=== PATIENT | female | born 1995 | race Caucasian/White ===

== ENCOUNTER 2019-08-15 17:40 | Emergency (ER) | payer SELFPAY ==
--- NOTE | 2019-08-15 19:34 | ED ---
Skin Complaint - HPI Summary HPI Summary: Patient complains of abscess to left axilla, involving both trunk and left upper extremity 2 days. Patient states positive purulent drainage. Patient has history of IV meth use, but denies accessing axilla for IV drug use. Denies prior history of abscess. Denies fever, cough, sore throat, CP, SOB, N/V /V abdominal pain, change in urine, change in BM. Denies medical history. - History of Current Complaint Chief Complaint: EDRashSkinAbscess Time Seen by Provider: 08/15/19 19:29 Stated Complaint: ABCESS UNDER ARM Hx Obtained From: Patient Onset/Duration: Started Days Ago Skin Exposure Onset/Duration: Days Ago Timing: Constant Onset Severity: Mild Current Severity: Severe Pain Intensity: 9 Pain Scale Used: 0-10 Numeric Skin Location: Discrete Character: Pain, Redness, Painful Aggravating Symptom(s): Touch Alleviating Symptom(s): Nothing Associated Signs & Symptoms: Drainage - Allergy/Home Medications Allergies/Adverse Reactions: Allergies Allergy/AdvReac Type Severity Reaction Status Date / Time No Known Allergies Allergy Verified 08/15/19 17:49 PMH/Surg Hx/FS Hx/Imm Hx Endocrine/Hematology History: Denies: Hx Anticoagulant Therapy Cardiovascular History: Denies: Hx Pacemaker/ICD History: Denies: Hx Dialysis Sensory History: Denies: Hx Eye Prosthesis Opthamlomology History: Denies: Hx Legally Blind EENT History: Denies: Hx Deafness Neurological History: Denies: Hx Dementia Infectious Disease History: No Infectious Disease History: Denies: Traveled Outside the [place] in Last 30 Days - Family History Known Family History: Positive: Non-Contributory - Social History Alcohol Use: Occasionally Hx Substance Use: Yes Smoking Status (MU): Former Smoker Review of Systems Constitutional: Negative Eyes: Negative ENT: Negative Cardiovascular: Negative Respiratory: Negative Gastrointestinal: Negative Genitourinary: Negative Musculoskeletal: Negative Skin: Other Neurological: Negative Psychological: Normal All Other Systems Reviewed And Are Negative: Yes Physical Exam - Summary Physical Exam Summary: Large 8 cm x 8 cm area of fluctuance on upper medial bicep area. 6 x 6 cm area of fluctuance on trunk just proximal to left axilla. There appears to be some connecting induration between the 2 areas of fluctuance no purulent discharge noted. Localized erythema surrounding areas of fluctuance. Normal range of motion of left shoulder and left elbow without pain. Triage Information Reviewed: Yes Vital Signs On Initial Exam: Initial Vitals Temp Pulse Resp BP Pulse Ox 99.0 F 91 14 139/73 100 08/15/19 17:41 08/15/19 17:41 08/15/19 17:41 08/15/19 17:41 08/15/19 17:41 Vital Signs Reviewed: Yes Appearance: Positive: Well-Appearing Skin: Positive: Warm Head/Face: Positive: Normal Head/Face Inspection Eyes: Positive: Normal Neck: Positive: Supple Respiratory/Lung Sounds: Positive: Clear to Auscultation Cardiovascular: Positive: Normal Abdomen Description: Positive: Nontender Musculoskeletal: Positive: Normal Neurological: Positive: Normal Psychiatric: Positive: Normal AVPU Assessment: Alert - [place] Coma Scale Best Eye Response: 4 - Spontaneous Best Motor Response: 6 - Obeys Commands Best Verbal Response: 5 - Oriented Coma Scale Total: 15 Procedures - Sedation Patient Received Moderate/Deep Sedation with Procedure: No Diagnostics - Vital Signs Vital Signs Temp Pulse Resp BP Pulse Ox 08/15/19 17:41 99.0 F 91 14 139/73 100 - Laboratory Result Diagrams: 08/15/19 19:52 08/15/19 19:52 Lab Statement: Any lab studies that have been ordered have been reviewed, and results considered in the medical decision making process. Course/Dx - Course Course Of Treatment: Patient complains of abscess to left axilla, involving both trunk and left upper extremity 2 days. Patient states positive purulent drainage. Patient has history of IV meth use, but denies accessing axilla for IV drug use. Denies prior history of abscess. Denies fever, cough, sore throat , CP, SOB, N/V/V abdominal pain, change in urine, change in BM. Denies medical history. Vital signs within normal limits. Labs unremarkable. I&D performed on 2 abscesses.. Significant amount of purulent drainage. Both abscesses packed with iodoform. Patient started on Keflex and Bactrim. Wound culture positive for staph, negative for MRSA. - Diagnoses Provider Diagnoses: Abscess Discharge ED - Sign-Out/Discharge Documenting (check all that apply): Patient Departure - Discharge Plan Condition: Stable Disposition: HOME Prescriptions: Cephalexin CAP* [Keflex CAP*] 500 mg PO QID 10 Days #40 cap Sulfamethox/Trimethoprim DS* [Bactrim DS 800/160 TAB*] 1 tab PO BID 10 Days #20 tab Patient Education Materials: Abscess (ED), Abscess Follow-up (ED) Referrals: No Primary Care Phys,NOPCP [Primary Care Provider] - Additional Instructions: Take antibiotics as directed. Return to the ED in 2 days for abscess follow- up. Return earlier for any concerning symptoms. - Billing Disposition and Condition Condition: STABLE Disposition: Home
[2019-08-15] MEDS ORDERED: Lidocaine 2% 10 ML* VIAL INJ ONE (19:59)
[2019-08-15 20:04] LABS: ABS Eosinophils 0.3 10^3/ul (0-0.6); ABS Monocytes 0.8 10^3/ul (0-0.8); ABS Neutrophils 5.9 10^3/ul (1.5-7.7); Eosinophil % 3.1 %; Hematocrit 35 % (35-47); Hemoglobin 11.8 g/dL (12.0-16.0); Lymphocyte % 21.9 %; Mean Corpuscular HGB Conc 34 g/dL (31-36); Mean Corpuscular Hemoglobin 32 pg (27-31); Mean Corpuscular Volume 93 fL (80-97); Mean Platelet Volume 6.8 fL (7.4-10.4); Platelet Count 293 10^3/uL (150-450); Red Blood Count 3.74 10^6 /uL (3.70-4.87); Red Cell Distribution Width 14 % (10-15); White Blood Count 8.9 10^3/uL (3.5-10.8)
[2019-08-15 20:15] LABS: Albumin 3.1 g/dL (3.2-5.2); Albumin/Globulin Ratio 1.1 (1-3); BUN/Creatinine Ratio 14.6 (8-20); C Reactive Protein 73.55 mg/L (<8.01); Calcium 8.4 mg/dL (8.6-10.3); EGFR African American 232.6 (>60); EGFR Non-African American 192.2 (>60); Globulin 2.7 g/dL (2-4); Potassium 3.3 mmol/L (3.5-5.0); Total Bilirubin 0.5 mg/dL (0.2-1.0); Total Protein 5.8 g/dL (6.4-8.9)
[2019-08-15] MEDS ORDERED: Ketorolac *IM* INJ* 60 MG/2 ML VIAL ONE (21:21)
[2019-08-15] MEDS ORDERED: Cephalexin CAP* 500 MG PO ONE (21:57)
[2019-08-15] MEDS ORDERED: Sulfamethox/Trimethoprim DS 800/160* TAB PO ONE (21:57)
[2019-08-15] MEDS ORDERED: Potassium Chlor TAB* 20 MEQ TAB.ER PO ONE (21:58)
[2019-08-15] MEDS ORDERED: Ketorolac *IM* INJ* 60 MG/2 ML VIAL IM ONE (22:16)
[2019-08-15 22:55] VITALS: BP 141/69
== END 2019-08-15 22:30 | disposition home or self-care (01) ==
LOC: ED 17:40
DX: L02.412 Cutaneous abscess of left axilla (principal); L02.219 Cutaneous abscess of trunk, unspecified; B95.61 Methicillin susceptible Staphylococcus aureus infection as the cause of diseases classified elsewhere; Z87.891 Personal history of nicotine dependence
CPT/HCPCS: 10060; 36415; 80053; 83605; 85025; 86140; 87070; 87077; 87186; 87205; 87640; 87641; 96372; 99283; A9270-GY; J1885

== ENCOUNTER 2019-08-18 18:43 | Inpatient (IN) | payer SELFPAY ==
[2019-08-18] MEDS ORDERED: Piperacillin/Tazobac ADVAN(*) 3.375 GM in NS 0.9% 100 ML* 100 ML IVPB ONE (19:33)
[2019-08-18] MEDS ORDERED: NS 0.9% 1000 ML** 1,000 ML IV.FLUID IV ONE (19:33)
[2019-08-18 19:45] LABS: ABS Lymphocytes 2.8 10^3/ul (1.0-4.8); ABS Monocytes 0.7 10^3/ul (0-0.8); ABS Neutrophils 6.7 10^3/ul (1.5-7.7); Eosinophil % 0.3 %; Hematocrit 37 % (35-47); Hemoglobin 12.9 g/dL (12.0-16.0); Lymphocyte % 27.1 %; Mean Corpuscular HGB Conc 35 g/dL (31-36); Mean Corpuscular Hemoglobin 32 pg (27-31); Mean Corpuscular Volume 92 fL (80-97); Mean Platelet Volume 6.2 fL (7.4-10.4); Nucleated Red Blood Cells % 0.1; Platelet Count 400 10^3/uL (150-450); Red Blood Count 4.07 10^6 /uL (3.70-4.87); Red Cell Distribution Width 14 % (10-15); White Blood Count 10.4 10^3/uL (3.5-10.8)
[2019-08-18] MEDS ORDERED: Vancomycin(*) 1,000 MG VIAL IVPB SCH (20:00)
[2019-08-18] MEDS ORDERED: Vancomycin(*) 1,000 MG in NS 0.9% 250 ML* 250 ML IVPB ONE (20:00)
[2019-08-18 20:10] LABS: INR 1.15 (0.82-1.09)
[2019-08-18 20:11] LABS: ALT 34 U/L (7-52); AST 39 U/L (13-39); Albumin 3.8 g/dL (3.2-5.2); Albumin/Globulin Ratio 1.1 (1-3); Alkaline Phosphatase 49 U/L (34-104); Anion Gap 9 mmol/L (2-11); BUN/Creatinine Ratio 13.8 (8-20); Blood Urea Nitrogen 8 mg/dL (6-24); C Reactive Protein 11.16 mg/L (<8.01); CO2 Carbon Dioxide 27 mmol/L (22-32); Calcium 9.2 mg/dL (8.6-10.3); Chloride 104 mmol/L (101-111); EGFR African American 155.9 (>60); EGFR Non-African American 128.8 (>60); Globulin 3.4 g/dL (2-4); Glucose 88 mg/dL (70-100); Potassium 3.7 mmol/L (3.5-5.0); Sodium 140 mmol/L (135-145); Total Protein 7.2 g/dL (6.4-8.9)
--- NOTE | 2019-08-18 20:15 | ED ---
Skin Complaint - HPI Summary HPI Summary: This patient is a 23 year old F presenting to [facility] with a chief complaint of worsening abscess near anterior axilla today. Pt was here on 08/16/19 to have abscess drained, and was supposed to start antibiotics but she never picked them up. Pt was supposed come into the ED yesterday but could not make it. Per triage, the patient rates the pain 2/10 in severity. Patient denies fever, nausea, vomiting. Pt has a PMHx of anxiety. Pt does not take any other antibiotics. Pt has previously had an ectopic . Pt smokes, and does not drink. Pt is on suboxone. - History of Current Complaint Chief Complaint: EDRashSkinAbscess Time Seen by Provider: 08/18/19 19:33 Stated Complaint: ABSCESS ON LT ARM PER PT Hx Obtained From: Patient Onset/Duration: Started Days Ago, Worse Since - 08/18/19 Skin Exposure Onset/Duration: Days Ago Timing: Constant Onset Severity: Mild Current Severity: Mild Pain Intensity: 2 Pain Scale Used: 0-10 Numeric Skin Location: Arm Character: Swelling, Pain, Redness Aggravating Symptom(s): Nothing Alleviating Symptom(s): Nothing Associated Signs & Symptoms: Negative - Allergy/Home Medications Allergies/Adverse Reactions: Allergies Allergy/AdvReac Type Severity Reaction Status Date / Time No Known Allergies Allergy Verified 08/15/19 17:49 Home Medications: Home Medications Buprenorphine HCl/Naloxone HCl [Zubsolv 11.4-2.9 mg Tablet Sl] 1 each SL DAILY 08/18/19 [History Confirmed 08/18/19] PMH/Surg Hx/FS Hx/Imm Hx Endocrine/Hematology History: Denies: Hx Anticoagulant Therapy Cardiovascular History: Denies: Hx Pacemaker/ICD History: Denies: Hx Dialysis Sensory History: Denies: Hx Eye Prosthesis, Hx Legally Blind, Hx Deafness Opthamlomology History: Denies: Hx Eye Prosthesis, Hx Legally Blind Neurological History: Denies: Hx Dementia - Surgical History Surgery Procedure, Year, and Place: ectopic Infectious Disease History: No Infectious Disease History: Denies: Traveled Outside the [place] in Last 30 Days - Family History Known Family History: Negative: Diabetes - Social History Alcohol Use: None Hx Substance Use: Yes Substance Use Type: Reports: Other Substance Use Comment - Amount & Last Used: methamphetamine Smoking Status (MU): Current Every Day Smoker - Additional Comments History Additional Comments: Home Medications Medication Instructions Recorded Confirmed Type NK [No Home Medications Reported] 08/18/19 08/18/19 History Review of Systems Negative: Fever Negative: Vomiting, Nausea Positive: Other - abscess All Other Systems Reviewed And Are Negative: Yes Physical Exam - Summary Physical Exam Summary: General: Well-developed, Well-nourished Female. In mild discomfort at rest. HEENT: Normocephalic, Atraumatic. Eyes: Conjuctiva normal, PERRL. Ears: TMs within normal limits. Nares: (-) discharge, (-) erythema. Oropharynx: Clear, mucous membranes moist, (-) exudates. Neck: Soft, FROM, (-) lymphadenopathy, (-) thyromegaly, (-) JVD. Cardiovascular: Normal sinus rhythm, (-) murmur. Lungs: Clear to auscultation bilaterally (-) wheezes, (-) rales, (-) rhonchi. Abdomen: Soft, non-tender, non-distended, (-) organomegaly, normal bowel sounds. Back: (-) CVA tenderness Extremities: No edema. Skin: Warm, dry, Swelling anterior axilla area, erythematous packing removed, significant erythema from axilla to upper arm; 2.5 cm cavernous wound with packing partially removed; puss at the sight, significant tenderness and warmth Neuro: Alert and oriented x3, no focal deficits. Psychiatric: Moderately anxious appearing Triage Information Reviewed: Yes Vital Signs On Initial Exam: Initial Vitals Temp Pulse Resp BP Pulse Ox 97.7 F 109 16 127/79 98 08/18/19 18:51 08/18/19 18:51 08/18/19 18:51 08/18/19 18:51 08/18/19 18:51 Vital Signs Reviewed: Yes Procedures - Sedation Patient Received Moderate/Deep Sedation with Procedure: No Diagnostics - Vital Signs Vital Signs Temp Pulse Resp BP Pulse Ox 08/18/19 18:51 97.7 F 109 16 127/79 98 - Laboratory Lab Results: Lab Results 08/18/19 Range/Units 19:38 WBC 10.4 (3.5-10.8) 10^3/uL RBC 4.07 (3.70-4.87) 10^6 /uL Hgb 12.9 (12.0-16.0) g/dL Hct 37 (35-47) % MCV 92 (80-97) fL MCH 32 H (27-31) pg MCHC 35 (31-36) g/dL RDW 14 (10-15) % Plt Count 400 (150-450) 10^3/uL MPV 6.2 L (7.4-10.4) fL Neut % (Auto) 64.9 % Lymph % (Auto) 27.1 % Grant % (Auto) 7.2 % Eos % (Auto) 0.3 % Baso % (Auto) 0.5 % Absolute Neuts (auto) 6.7 (1.5-7.7) 10^3/ul Absolute Lymphs (auto) 2.8 (1.0-4.8) 10^3/ul Absolute Monos (auto) 0.7 (0-0.8) 10^3/ul Absolute Eos (auto) 0.0 (0-0.6) 10^3/ul Absolute Basos (auto) 0.0 (0-0.2) 10^3/ul Absolute Nucleated RBC 0.0 10^3/ul Nucleated RBC % 0.1 Result Diagrams: 08/18/19 19:38 08/18/19 19:38 Lab Statement: Any lab studies that have been ordered have been reviewed, and results considered in the medical decision making process. Course/Dx - Course Course Of Treatment: This patient is a 23 year old F presenting to [facility] with a chief complaint of worsening abscess near anterior axilla today. Pt was here on 08/16/19 to have abscess drained, and was supposed to start antibiotics but she never picked them up. Pt was supposed come into the ED yesterday but could not make it. Per triage, the patient rates the pain 2/10 in severity. Patient denies fever, nausea, vomiting. Pt has a PMHx of anxiety. Pt does not take any other antibiotics. Pt has previously had an ectopic . Pt smokes, and does not drink. Pt is on suboxone. Pt has mild discomfort at rest. Swelling anterior axilla area, erythematous packing removed, significant erythema from axilla to upper arm; 2.5 cm cavernous wound with packing partially removed; puss at the sight, significant tenderness and warmth, and is moderately anxious appearing. Blood work obtained. MCH is 32, MPV is is 6.2, Lactic Acid is 2.4, C -Reactive Protein is 11.16, and INR is 1.15. In the ED course the patient was given fluids, Vanocomycin, and Piperacillin. We discussed patient care with Dr. Tran and they accepted pt for admission. Pt will be admitted. The patient is agreeable with this plan. - Diagnoses Provider Diagnoses: Abscess - Physician Notifications Discussed Care Of Patient With: Mk Tran Time Discussed With Above Provider: 21:03 Instructed by Provider To: Other - Discussed case with Dr. Tran, who accepts pt for admission Discharge ED - Sign-Out/Discharge Documenting (check all that apply): Patient Departure - Admit - Discharge Plan Condition: Stable Disposition: ADMITTED TO [facility] - Billing Disposition and Condition Condition: STABLE Disposition: Admitted to [facility] - Attestation Statements Document Initiated by Gavie: Yes Documenting Scribe: Karen Dixon Provider For Whom Zoya is Documenting (Include Credential): Nithya Cramer MD Scribe Attestation: Karen Fry scribed for Nithya Cramer MD on 08/19/19 at 0149. Scribe Documentation Reviewed: Yes Provider Attestation: The documentation as recorded by the Karen jenkins accurately reflects the service I personally performed and the decisions made by Nithya banks MD Status of Scribe Document: Viewed
[2019-08-18 20:41] LABS: Alcohol < 10 mg/dL (<10)
[2019-08-18] MEDS ORDERED: LORazepam INJ* 2 MG/ML 1 ML VIAL IM ONE (22:42)
[2019-08-18] MEDS ORDERED: Ibuprofen TAB* 400 MG PO ONE (22:42)
[2019-08-18] MEDS ORDERED: Lorazepam PYXIS KEY PRN (22:43)
[2019-08-19] MEDS ORDERED: Lactated Ringers 1000 ML Bag* 1,000 ML IV SCH
--- NOTE | 2019-08-19 01:18 | HP ---
ADMISSION HISTORY AND PHYSICAL: DATE OF ADMISSION: 08/18/19 CHIEF COMPLAINT: Left am abscess. HISTORY OF PRESENT ILLNESS: This is a 23-year-old female with past medical history of IV drug abuse with heroin and methamphetamine, the last use of methamphetamine being this morning, came in on 08/16/19 with a week long history of swelling in the left axillary area. The patient stated that initially she saw 2 small pimples which she thought she could pick at; however, after she picked at it, overnight they became swollen and she finally decided to come to the ER for further evaluation. She underwent incision and drainage on 08/16/19, and the culture of the axillary wound was growing Staph aureus, MRSA negative, and she was prescribed both Keflex and Bactrim which she did not draft roller picker as they were costing her 46 dollars and not free. The patient was recommended to come back for repeat packing yesterday which she did not and finally returned back to the ER today for further evaluation. Her wound has increased in size, although her pain has decreased ever since the I and D. She still offers no episodes of fever or chills. No other chest pain, shortness of breath, abdominal pain, nausea, vomiting, or diarrhea. No other urinary burning or pain with urination. PAST MEDICAL HISTORY: She has had an ectopic status post surgical resection, polysubstance abuse including opiate, previously was on Suboxone therapy. History depression, currently not on any medication. Hep C genotype 1a positive as of 05/09/19 lab. PAST SURGICAL HISTORY: As mentioned, the ectopic which needed surgical removal. HOME MEDICATIONS: Currently, the patient is not taking any medication. She used to be on Suboxone and has not picked up any prescription for the antibiotics that were prescribed a few days prior. ALLERGIES: No known drug allergies. FAMILY HISTORY: Mother 46, alive, has diabetes. Father 53, alive, has some psychiatric conditions. SOCIAL HISTORY: She lives with her boyfriend, has been smoking a pack a day for the last 9 to 10 years. Occasional alcohol use. Has used IV drugs including methamphetamine and heroin, last use of methamphetamine was this morning. She works at a restaurant and has been tested for HIV in the past and was negative. Last HIV negativity was from May 2019. REVIEW OF SYSTEMS: A 14-point review of systems did not reveal any new information. PHYSICAL EXAMINATION GENERAL: The patient is awake, alert, oriented x3, was noted to be having anxiety and wanted to initially sign out AMA but after much convincing, decided to stay. VITAL SIGNS: Temperature 97.7, heart rate was noted to be 67, respiratory rate 16, saturating 99% on room air, BP was noted to be 140/86. HEAD AND NECK: Atraumatic, normocephalic. Bilateral pupils reactive. Oral mucosa was moist. Neck: Supple. No jugular venous distention. LUNGS: Clear to auscultation bilaterally. No wheezing, rhonchi, or rales. HEART: S1, S2. Regular rate and rhythm. ABDOMEN: Soft, nontender, nondistended. EXTREMITIES: No cyanosis or clubbing. There is a large open wound on the left arm and even in the left axillary area there was a small abscess with opening. DIAGNOSTIC STUDIES/LAB DATA: CBC was within normal limits. Coagulation profile was minimally elevated. INR was 1.3. Comprehensive metabolic panel was unremarkable. Lactic acid minimally worsened at 2.4. Serum alcohol level was negative. IMPRESSION: This is a 23-year-old female, here with abscess and cellulitis, with a history of IV drug abuse and hepatitis C. ASSESSMENT AND PLAN: 1. Cellulitis. For now, the patient has been started on vancomycin and Zosyn in the ER, but per previous culture results, the patient's Staphylococcus aureus was sensitive to doxycycline, we will start IV doxycycline. We will consider surgical consultation to see if there could be any debridement that could be performed on her wound, and we will consider discharging her back tomorrow postsurgical evaluation. Repeat labs in the morning including lactic acid after some IV hydration. 2. History of hepatitis C. Follow up outpatient. 3. DVT prophylaxis: Encouraged ambulation. 4. Code status: Full code. [id number]/CPS #: [id number] [facility]
[2019-08-19] MEDS ORDERED: DOXYcycline IV* 100 MG in NS 0.9% 250 ML* 250 ML IVPB SCH (06:30)
[2019-08-19 09:25] VITALS: BP 142/84
--- NOTE | 2019-08-19 19:41 | DS ---
CC: [facility] * DISCHARGE SUMMARY: DATE OF ADMISSION: 08/18/19 DATE OF DISCHARGE: 08/19/19 PRIMARY CARE PROVIDER: FLIP Richard. MY ATTENDING WHILE IN THE HOSPITAL: Marla Loomis MD.* (DICTATED BY NORA SUÁREZ) PRIMARY DISCHARGE DIAGNOSIS: Left axillary abscess. SECONDARY DISCHARGE DIAGNOSES: 1. History of polysubstance abuse including opiate and methamphetamine abuse. 2. History of hepatitis C positive. 3. Depression. STUDIES DONE WHILE IN THE HOSPITAL: None. MEDICATIONS AT DISCHARGE: 1. Buprenorphine/naloxone 1.4/2.9 one tab p.o. daily. The patient does not have this medication at this time. 2. Doxycycline 100 mg p.o. b.i.d. x26 doses. HOSPITAL COURSE: This is a brief summary of the patient's presentation. For more details, please see the history and physical from Dr. Mk Tran on . In brief, the patient is a 23-year-old female with past medical history significant for the above who presented to the emergency department for the second time in 3 days for swelling in her left axillary area, which was related to pimples which she picked at and then became swollen with discharge. The patient had incision and drainage on 08/16/[address] Sebas Fonseca of emergency medicine. The patient was prescribed Keflex and Bactrim at that time , but did not pick these up and her wound increased in size in her time out of the hospital. The patient stated there was significant decrease in her pain and all her systemic symptoms. The patient was admitted to the hospital and given 2 doses of IV doxycycline. The patient had an elevated lactic acid and refused a repeat. The patient had an elevated CRP, which was trending down significantly from her previous visit to the emergency department. The patient was very anxious to leave due to personal matters and would not wait for a surgery consult as discussed with the patient as she might have worsening of her infection if she did not wait for a surgical consultation to discuss debridement and ongoing therapy. She states she understood and she will return to the hospital for worsening in her symptoms, but that she did have to go. The patient is prescribed doxycycline for free through the polypharmacy, which she picked up on her way out. After her morning dose of doxycycline, the patient left against medical advice on the morning of 08/19/19. PHYSICAL EXAMINATION ON THE DAY OF DISCHARGE: General: The patient is a 23- year- old female who appears older than stated age and is sitting comfortably in the bed, in no acute distress. Vital Signs: Temperature 97.9, pulse rate 117, respiratory rate 18, oxygen saturation 92% on room air, blood pressure 142/ 84. HEENT: Head: Normocephalic, atraumatic. Sclerae anicteric. No conjunctival injection. Nasal mucosa is moist. Oral mucosa is moist. No pharyngeal erythema, discharge, or exudate. Neck: Supple, nontender. No lymphadenopathy. No carotid bruits auscultated. No JVD. Cardiac: Regular rate and rhythm. No clicks, murmurs, gallops, or rubs. Pulses 2+ in the bilateral dorsalis pedis, posterior tibialis and radial areas. Respiratory: Clear to auscultation bilaterally. No wheezes, rales, or rhonchi. Good air exchange bilaterally. Abdomen: Soft, nontender, nondistended. Bowel sounds present. Normoactive in all 4 quadrants. No hepatosplenomegaly. No abdominal bruits auscultated. No hepatojugular reflux. Genitourinary: No suprapubic or CVA tenderness. Skin: Clean, dry, intact. No rashes. Two areas of erythema and induration to the left axillary area with surrounding redness and no lymphangitic streaking. The patient would not tolerate a lymphatic exam. Moderate amount of purulent drainage. Neuro: Cranial nerves II through XII intact. No focal deficits. Alert and oriented x3. Psychiatric: Pleasant and cooperative. DISCHARGE PLAN BY PROBLEM: 1. Left axillary abscess. The patient has had incision and drainage. The patient received 2 doses of IV doxycycline while in the hospital. The patient' s wound culture grew out Staphylococcus aureus ([id number] Staphylococcus aureus), which was susceptible to doxycycline, which she was improving on in the hospital. She is to continue on this for a total of 14 days of therapy. This medication is provided to her without cost as she has previously had issues with insurance coverage and medication compliance. The patient should follow up with her [facility] provider as soon as she can reestablish care with them. The patient should return to the hospital for high fevers, increased pain in her arm, chest pain, severe shortness of breath, or alarming symptoms. 2. History of polysubstance abuse. The patient should follow with [facility] regarding these issues as well. Abstinence should be maintained, though the patient appears precontemplative at this time for her polysubstance abuse. DISPOSITION: Home. CONDITION: Guarded. TIME SPENT: Approximately 45 minutes were spent on the discharge of this patient, 30 of which were spent [id number] with the patient, obtaining history and physical, and discussing the treatment plan. NORA SUÁREZ [id number]/CPS #: [id number] [facility]
== END 2019-08-19 08:35 | disposition left against medical advice (07) | DRG 603 ==
LOC: ED 18:43 → MED 23:33
PROVIDERS: ADMIT Internal Medicine; ATTEND Internal Medicine
DX: L02.412 Cutaneous abscess of left axilla (principal); F32.9 Major depressive disorder, single episode, unspecified; F15.10 Other stimulant abuse, uncomplicated; Z53.29 Procedure and treatment not carried out because of patient's decision for other reasons; B95.61 Methicillin susceptible Staphylococcus aureus infection as the cause of diseases classified elsewhere; F17.210 Nicotine dependence, cigarettes, uncomplicated; L03.112 Cellulitis of left axilla; Z86.19 Personal history of other infectious and parasitic diseases; Z91.14 Patient's other noncompliance with medication regimen; Z83.3 Family history of diabetes mellitus; Z84.0 Family history of diseases of the skin and subcutaneous tissue; Z72.89 Other problems related to lifestyle
CPT/HCPCS: 36415; 80053; 80320; 83605; 85025; 85610; 86140; 87040; 96365; 96372; 99284; A9270-GY; G0480; J2060; J2543; J3370

== ENCOUNTER 2019-10-01 16:20 | Emergency (ER) | payer MEDICAID ==
[2019-10-01] MEDS ORDERED: Lorazepam PYXIS KEY PRN (16:23)
[2019-10-01] MEDS ORDERED: LORazepam INJ* 2 MG/ML 1 ML VIAL IM ONE (16:23)
[2019-10-01] MEDS ORDERED: Lorazepam PYXIS KEY ONE (16:26)
--- NOTE | 2019-10-01 16:35 | ED ---
Psychiatric Complaint - HPI Summary HPI Summary: 23 year old female presents to the ED by EMS with a chief complaint of a psychotic break secondary to substance use. Patient was exchanging needles at the [facility] in [place] when she voluntarily called an ambulance after feeling an altered mental status secondary to IV meth injection. She reports chest pain. Patient denies self harm as well as fever, chills, erythema of eyes , sore throat, SOB, cough, abdominal pain, N/V, dysuria, hematuria, myalgia, edema, rash, or dizziness. Patient has no history of cocaine use. - History Of Current Complaint Hx Obtained From: Patient Onset/Duration: Sudden Onset, Lasting Minutes Timing: Constant Character: Manic, Anxious Aggravating Factor(s): Drug Use Alleviating Factor(s): Nothing Associated Signs And Symptoms: Positive: Hostile, Confused Has Suicidal: Denies: Thoughts, With A Plan Has Homicidal: Denies: Thoughts, With A Plan Ingestion History: Type/Name Of Drug - Methamphetamine - Allergies/Home Medications Home Medications: Home Medications NK [No Home Medications Reported] 10/01/19 [History Confirmed 10/01/19] PMH/Surg Hx/FS Hx/Imm Hx Sensory History: Denies: Hx Legally Blind - Family History Known Family History: Positive: Unknown - Social History Substance Use Type: Reports: Synthetic Drugs. Denies: Cocaine Review of Systems Negative: Fever, Chills Negative: Erythema Negative: Sore Throat Positive: Chest Pain Negative: Shortness Of Breath, Cough Negative: Abdominal Pain, Vomiting, Nausea Negative: dysuria, hematuria Negative: Myalgia, Edema Negative: Rash Neurological: Negative - dizziness Positive: Anxious All Other Systems Reviewed And Are Negative: Yes Physical Exam - Summary Physical Exam Summary: Constitutional: Well-developed, Well-nourished, Alert. (-) Distressed. Skin: Warm, Dry HENT: Normocephalic; Atraumatic Eyes: Conjunctiva normal. Dilated pupils. Neck: Musculoskeletal ROM normal neck. (-) JVD, (-) Stridor, (-) Tracheal deviation Cardio: Rhythm regular, rate normal, Heart sounds normal; Intact distal pulses; Radial pulses are 2+ and symmetric. (-) Murmur Pulmonary/Chest wall: Effort normal. (-) Respiratory distress, (-) Wheezes, (-) Rales Abd: Soft, (-) tenderness, (-) Distension, (-) Guarding, (-) Rebound Musculoskeletal: (-) Edema Lymph: (-) Cervical adenopathy Neuro: Alert, Oriented x3 Psych: Agitated and yelling. Triage Information Reviewed: Yes Vital Signs Reviewed: Yes Procedures - Sedation Patient Received Moderate/Deep Sedation with Procedure: No Course/Dx - Course Course Of Treatment: 23 year old female presents to the ED by EMS with a chief complaint of a psychotic break secondary to substance use. Patient was exchanging needles at the [facility] in [place] when she called an ambulance after feeling an altered mental status secondary to IV meth. She reports chest pain. Patient denies self harm as well as fever, chills, erythema of eyes, sore throat, SOB, cough, abdominal pain, N/V, dysuria, hematuria, myalgia, edema, rash, or dizziness. Patient has no history of cocaine use. 35 min of critical care time was used. Patient is a signout to Dr. Lui at change of shifts at 1900 on 10/01/19, pending reeval. - Differential Dx/Clinical Impression Provider Diagnosis: Methamphetamine abuse - Critical Care Time Critical Care Time: 30-74 min - 35 min Discharge ED - Sign-Out/Discharge Documenting (check all that apply): Sign-Out Patient Signing out patient TO: Nithya Lui - Patient is a signout to Dr. Lui at change of shifts at 1900 on 10/01/19 - Discharge Plan - Attestation Statements Document Initiated by Scribe: Yes Documenting Scribe: Dusty Raymond Provider For Whom Scribe is Documenting (Include Credential): Alfonzo Benz MD Scribe Attestation: Dusty Fry, scribed for Alfonzo Benz MD on 10/01/19 at 1856. Status of Scribe Document: Ready
--- NOTE | 2019-10-01 19:28 | ED ---
Progress - Progress Note Progress Note: Patient is received as a sign-out from Dr. Benz to Dr. Lui at 1900 shift change pending re-evaluation and disposition of this patient. 2343 - Patient to receive MHE. Patient had made claims of feeling unsafe and that people are trying to harm her. 0545 Per director of acquisition marketing Mar note: Attempted to evaluate patient. She was far too somnolent to answer questions fully for evaluation. The most that she could tell me is that she needs help because she "injected meth and now I feel loopy." I was having to loudly call her name and ask her the same questions repeatedly to wake her for an answer when she asked me to please stop calling her name and leave so she can sleep. Patient is signed out to Dr. Fonseca at 0700 10/02/19 pending MHE. Course/Dx - Diagnoses Provider Diagnoses: Methamphetamine abuse - Critical Care Time Critical Care Time: 30-74 min - 35 min Discharge ED - Sign-Out/Discharge Documenting (check all that apply): Sign-Out Patient, Receiving Sign-Out Signing out patient TO: Sebas Fonseca Receiving patient FROM: Alfonzo Benz - Discharge Plan Condition: Stable - Billing Disposition and Condition Condition: STABLE - Attestation Statements Document Initiated by Scribe: Yes Documenting Scribe: BECKA ROSEN Provider For Whom Zoya is Documenting (Include Credential): JAMES LUI MD Scribe Attestation: BECKA Fry, scribed for JAMES LUI MD on 10/02/19 at 0651. Scribe Documentation Reviewed: Yes Provider Attestation: The documentation as recorded by the BECKA jenkins accurately reflects the service I personally performed and the decisions made by me, JAMES LUI MD Status of Scribe Document: Viewed
[2019-10-02 00:29] LABS: ABS Basophils 0.1 10^3/ul (0-0.2); ABS Eosinophils 0.1 10^3/ul (0-0.6); ABS Lymphocytes 2.4 10^3/ul (1.0-4.8); ABS Monocytes 0.8 10^3/ul (0-0.8); ABS Neutrophils 7.8 10^3/ul (1.5-7.7); Eosinophil % 0.5 %; Hematocrit 33 % (35-47); Lymphocyte % 21.7 %; Mean Corpuscular HGB Conc 34 g/dL (31-36); Mean Corpuscular Hemoglobin 31 pg (27-31); Mean Corpuscular Volume 91 fL (80-97); Mean Platelet Volume 6.6 fL (7.4-10.4); Platelet Count 255 10^3/uL (150-450); Red Blood Count 3.57 10^6 /uL (3.70-4.87); Red Cell Distribution Width 14 % (10-15); White Blood Count 11.1 10^3/uL (3.5-10.8)
[2019-10-02 00:50] LABS: Albumin 3.3 g/dL (3.2-5.2); Anion Gap 5 mmol/L (2-11); CO2 Carbon Dioxide 28 mmol/L (22-32); Calcium 8.6 mg/dL (8.6-10.3); Chloride 105 mmol/L (101-111); Potassium 3.8 mmol/L (3.5-5.0); Sodium 138 mmol/L (135-145)
[2019-10-02 00:56] LABS: ALT 7 U/L (7-52); AST 15 U/L (13-39); Albumin/Globulin Ratio 0.9 (1-3); Alkaline Phosphatase 45 U/L (34-104); BUN/Creatinine Ratio 16.3 (8-20); Blood Urea Nitrogen 8 mg/dL (6-24); EGFR African American 189.4 (>60); EGFR Non-African American 156.5 (>60); Globulin 3.7 g/dL (2-4); Glucose 96 mg/dL (70-100)
[2019-10-02 01:57] LABS: Acetaminophen < 15 mcg/mL; Alcohol < 10 mg/dL (<10); Salicylate < 2.50 mg/dL (<30)
[2019-10-02 02:10] LABS: TSH (Thyroid Stimulating Horm) 0.44 mcIU/mL (0.34-5.60)
--- NOTE | 2019-10-02 07:36 | ED ---
Progress - Progress Note Progress Note: Patient is received as a sign-out from Dr. Lui to Dr. Ponce at 0700 shift change pending MHE. 0730 - Patient is awake, denies SI and HI at this time. She notes she is getting evicted from her apartment today and wants to be discharged so she can get her stuff and move in with her father. Patient will be discharged to home. Course/Dx - Course Course Of Treatment: Patient is here after using methamphetamine. Patient was seen yesterday by Dr. Benz. Patient was in a psychotic break so she was given Ativan. Patient slept through the night with no waking up with Dr. Lui. Patient was signed out to me by Dr. Lui. Upon my examination, patient woke up and was essentially questions appropriate. Patient denied any suicidal ideation, homicidal ideation, AV hallucinations. Patient states she's being objected from her apartment today and needs to go get her stuff so she can move in with her father. I do not think patient needs a mental health eval at this time so she'll be discharged. - Diagnoses Provider Diagnoses: Methamphetamine abuse, Altered mental status, Tachycardia - Critical Care Time Critical Care Time: 30-74 min - 35 min Discharge ED - Sign-Out/Discharge Documenting (check all that apply): Patient Departure - discharge , Receiving Sign-Out Receiving patient FROM: Nithya Lui - Discharge Plan Condition: Stable Disposition: HOME Patient Education Materials: Methamphetamine Abuse (ED), Altered Mental Status (ED), Tachycardia (ED) Additional Instructions: PLEASE RETURN TO ED FOR ANY NEW OR WORSENING SYMPTOMS. PLEASE FOLLOW UP WITH YOUR PRIMARY CARE PHYSICIAN WITHIN THREE DAYS. - Billing Disposition and Condition Condition: STABLE Disposition: Home - Attestation Statements Document Initiated by Kellyibe: Yes Documenting Scribe: BECKA ROSEN Provider For Whom Zoya is Documenting (Include Credential): ARIK PONCE MD Scribe Attestation: BECKA Fry, scribed for ARIK PONCE MD on 10/02/19 at 0757. Scribe Documentation Reviewed: Yes Provider Attestation: The documentation as recorded by the BECKA jenkins accurately reflects the service I personally performed and the decisions made by me, ARIK PONCE MD Status of Scribe Document: Viewed
[2019-10-02 08:43] VITALS: BP 105/59
== END 2019-10-02 08:39 | disposition home or self-care (01) ==
LOC: EDBD → ED 16:20 → MERGE 16:20 → ED 10-02 08:44
DX: F15.10 Other stimulant abuse, uncomplicated (principal); R41.82 Altered mental status, unspecified; R00.0 Tachycardia, unspecified
CPT/HCPCS: 36415; 80053; 80320; 80329; 84443; 85025; 96372; 99284; G0480; J2060

== ENCOUNTER 2020-05-03 14:46 | Inpatient (IN) ==
[2020-05-03] MEDS ORDERED: cefTRIAXone(*) 2 GM ADDV.VIAL 2 GM in NS 0.9% 100 ml BAG 100 ML IVPB ONE (15:47)
[2020-05-03] MEDS ORDERED: NS 0.9% 1000 ml BAG 2,040 ML IV ONE (15:47)
[2020-05-03] MEDS ORDERED: Vancomycin(*) 1,250 MG in NS 0.9% 250 ml 250 ML IVPB ONE (16:00)
[2020-05-03 17:02] LABS: ABS Basophils 0.1 10^3/ul (0-0.2); ABS Monocytes 0.8 10^3/ul (0-0.8); Eosinophil % 0.2 %; Hematocrit 41 % (35-47); Hemoglobin 13.9 g/dL (12.0-16.0); Lymphocyte % 10.6 %; Mean Corpuscular HGB Conc 34 g/dL (31-36); Mean Corpuscular Hemoglobin 31 pg (27-31); Mean Corpuscular Volume 90 fL (80-97); Mean Platelet Volume 6.5 fL (7.4-10.4); Platelet Count 436 10^3/uL (150-450); Red Blood Count 4.51 10^6 /uL (3.70-4.87); Red Cell Distribution Width 16 % (10-15); White Blood Count 19.1 10^3/uL (3.5-10.8)
[2020-05-03 17:23] LABS: ALT 19 U/L (7-52); AST 21 U/L (13-39); Albumin 4.5 g/dL (3.2-5.2); Alkaline Phosphatase 56 U/L (34-104); Anion Gap 10 mmol/L (2-11); BUN/Creatinine Ratio 22.2 (8-20); Blood Urea Nitrogen 14 mg/dL (6-24); CO2 Carbon Dioxide 28 mmol/L (22-32); Calcium 9.9 mg/dL (8.6-10.3); Chloride 101 mmol/L (101-111); EGFR African American 140.5 (>60); EGFR Non-African American 116.1 (>60); Globulin 4.4 g/dL (2-4); Glucose 84 mg/dL (70-100); HCG Pregnancy < 0.60 mIU/mL; Potassium 3.7 mmol/L (3.5-5.0); Sodium 139 mmol/L (135-145); Total Protein 8.9 g/dL (6.4-8.9)
[2020-05-03] MEDS ORDERED: Iohexol 300 (CONTRAST) 10 ML SDV IV ONE (18:32)
[2020-05-03] MEDS ORDERED: Thiamine IV 100 MG, Folic Acid 1 MG, Multiple Vitamin IV ADULT 10 ML in NS 0.9% 1000 ml... IVPB ONE (19:26)
[2020-05-03] MEDS ORDERED: Vancomycin(*) 1,000 MG in NS 0.9% 250 ml 250 ML IVPB ONE (19:26)
[2020-05-03] MEDS ORDERED: Vancomycin per Pharmacy 1 EA NOTE FOLLOW UP SCH (20:00)
[2020-05-03] MEDS ORDERED: Ondansetron 4 mg VIAL 2 MG/ML 2 ml VIAL IV PRN (20:00)
[2020-05-03] MEDS: LORazepam 1 mg TAB (*) PO SCH ×2 (21:21→23:41)
[2020-05-04] MEDS: NS 0.9% 1000 ml BAG 1,000 ML IV SCH ×2 (01:00→11:57)
[2020-05-04] MEDS: Vancomycin(*) 1,250 MG IV Q8H IVPB SCH ×3 (01:00→17:46)
[2020-05-04] MEDS: LORazepam 1 mg TAB (*) PO SCH ×2 (04:00→21:47)
[2020-05-04 05:32] LABS: ABS Basophils 0.1 10^3/ul (0-0.2); ABS Eosinophils 0.1 10^3/ul (0-0.6); ABS Lymphocytes 2.4 10^3/ul (1.0-4.8); ABS Monocytes 0.9 10^3/ul (0-0.8); Eosinophil % 0.6 %; Hematocrit 32 % (35-47); Hemoglobin 11.1 g/dL (12.0-16.0); Lymphocyte % 17.4 %; Mean Corpuscular HGB Conc 34 g/dL (31-36); Mean Corpuscular Hemoglobin 31 pg (27-31); Mean Corpuscular Volume 90 fL (80-97); Mean Platelet Volume 6.6 fL (7.4-10.4); Platelet Count 318 10^3/uL (150-450); Red Blood Count 3.62 10^6 /uL (3.70-4.87); Red Cell Distribution Width 15 % (10-15)
[2020-05-04 05:41] LABS: Potassium 3.9 mmol/L (3.5-5.0)
[2020-05-04 05:46] LABS: BUN/Creatinine Ratio 17.9 (8-20); EGFR African American 160.9 (>60)
[2020-05-04 06:26] LABS: Calcium 7.9 mg/dL (8.6-10.3)
[2020-05-04] MEDS: Multivitamins/Minerals TAB PO SCH (08:36)
[2020-05-04] MEDS ORDERED: Vancomycin Trough Check NOTE FOLLOW UP ONE (09:30)
[2020-05-04] MEDS: Cefepime 1 GM in Dextrose(*) 1 GM/50 ML BAG IV SCH (16:17)
[2020-05-04] MEDS: LORazepam 0.5 mg TAB (*) PO PRN (17:46)
[2020-05-04 17:52] LABS: C Reactive Protein 26.79 mg/L (<8.01)
[2020-05-05] MEDS: Vancomycin(*) 1,250 MG IV Q8H IVPB SCH ×3 (01:57→12:08)
[2020-05-05] MEDS: LORazepam 0.5 mg TAB (*) PO PRN ×3 (04:07→17:15)
[2020-05-05] MEDS: Cefepime 1 GM in Dextrose(*) 1 GM/50 ML BAG IV SCH ×2 (04:08→16:36)
[2020-05-05] MEDS ORDERED: Vancomycin Trough Check NOTE FOLLOW UP ONE (10:00)
[2020-05-05] MEDS: Multivitamins/Minerals TAB PO SCH (10:39)
[2020-05-05 11:09] LABS: ABS Basophils 0.1 10^3/ul (0-0.2); ABS Eosinophils 0.1 10^3/ul (0-0.6); ABS Lymphocytes 2.6 10^3/ul (1.0-4.8); ABS Monocytes 0.6 10^3/ul (0-0.8); Eosinophil % 1.2 %; Hematocrit 35 % (35-47); Hemoglobin 11.9 g/dL (12.0-16.0); Lymphocyte % 23.6 %; Mean Corpuscular HGB Conc 34 g/dL (31-36); Mean Corpuscular Hemoglobin 31 pg (27-31); Mean Corpuscular Volume 90 fL (80-97); Mean Platelet Volume 6.4 fL (7.4-10.4); Platelet Count 333 10^3/uL (150-450); Red Blood Count 3.88 10^6 /uL (3.70-4.87); Red Cell Distribution Width 15 % (10-15); White Blood Count 10.9 10^3/uL (3.5-10.8)
[2020-05-05] MEDS ORDERED: Nicotine Lozenge mini 2 MG LOZNG.MINI MT PRN (11:23)
[2020-05-05 11:30] LABS: C Reactive Protein 25.18 mg/L (<8.01); Calcium 8.7 mg/dL (8.6-10.3); EGFR African American 201.9 (>60); EGFR Non-African American 166.9 (>60); Potassium 3.7 mmol/L (3.5-5.0)
[2020-05-05] MEDS ORDERED: Nicotine PATCH 21 MG/24 HR PATCH TRANSDERM SCH (12:00)
[2020-05-05] MEDS ORDERED: Vancomycin(*) 1,000 MG in NS 0.9% 250 ml 250 ML IV SCH (12:30)
[2020-05-05 16:19] VITALS: BP 128/82
[2020-05-05] MEDS ORDERED: Trimethop/Sulfamethox 800/160 TAB PO SCH (17:00)
[2020-05-06] MEDS ORDERED: Vancomycin Trough Check NOTE FOLLOW UP ONE (12:00)
== END 2020-05-05 18:30 | disposition home or self-care (01) | DRG 872 ==
LOC: ED 14:46 → MED 19:24
PROVIDERS: ADMIT Hospitalist; ATTEND Internal Medicine